=== PATIENT | male | born 1980 | race Caucasian/White ===

== ENCOUNTER 2021-03-06 13:40 | Emergency (ER) | payer MEDICAID ==
[~2021-03-06] VITALS: Ht 188 cm; Wt 105.7 kg
[2021-03-06 14:10] VITALS: BP 167/95
[2021-03-06] MEDS ORDERED: NAPR-54 PO (16:18)
--- NOTE | 2021-03-06 16:41 | NUR ---
Patient discharged with v/s stable. Written and verbal after care instructions given and explained. Patient alert, oriented and verbalized understanding of instructions. Ambulatory with steady gait. All questions addressed prior to discharge. ID band removed. Patient advised to follow up with PMD. Rx of NAPROXEN given. Opportunity to ask questions provided and answered.
== END 2021-03-06 16:41 | disposition home or self-care (01) ==
LOC: MED 13:40
DX: M76.52 Patellar tendinitis, left knee (principal)
CPT/HCPCS: 73562; 99283

== ENCOUNTER 2022-02-15 14:03 | Emergency (ER) | payer MEDICAID ==
[~2022-02-15] VITALS: Ht 188 cm; Wt 96.2 kg
[~2022-02-15 14:03] MED LIST: NAPR-54 PO
[2022-02-15 14:42] VITALS: BP 131/79
--- NOTE | 2022-02-15 14:57 | NUR ---
COVID, FLU SWABS DONE.
[2022-02-15 15:57] LABS: BASOPHILS # (AUTO) 0.1 K/uL (0.00-0.22); BASOPHILS % (AUTO) 0.8 % (0.0-2.0); EOSINOPHILS # (AUTO) 0.2 K/uL (0-0.4); HEMOGLOBIN 15.9 g/dL (12.0-18.0); LYMPHOCYTES # (AUTO) 2.3 K/uL (2.0-11.5); LYMPHOCYTES % (AUTO) 19.2 % (20.5-51.1); MEAN CORPUSCULAR HEMOGLOBIN 30 pg (27-31); MEAN CORPUSCULAR HGB CONC 34 g/dL (33-37); MEAN CORPUSCULAR VOLUME 88.4 fL (80-94); MONOCYTES # (AUTO) 0.6 K/uL (0.8-1.0); MONOCYTES % (AUTO) 4.6 % (1.7-9.3); NEUTROPHILS # (AUTO) 8.9 K/uL (1.8-7.7); NEUTROPHILS % (AUTO) 73.4 % (42.2-75.2); PLATELET COUNT (AUTO) 184 K/uL (140-450); RED BLOOD CELL COUNT(AUTO) 5.32 MIL/uL (4.20-6.10); RED CELL DISTRIBUTION WIDTH 13.8 % (11.6-13.7); WHITE BLOOD COUNT (AUTO) 12.1 K/uL (4.8-10.8)
[2022-02-15 16:25] LABS: ANION GAP 9.5 (8-16); CARBON DIOXIDE 32.1 mmol/L (21-32); CREATININE 0.9 mg/dL (0.6-1.3); POTASSIUM 4.6 mmol/L (3.5-5.1)
--- NOTE | 2022-02-15 17:40 | NUR ---
41 y/o male, pt presents to ed with 2 weeks history of chest pain, headache, generalized body weakness. pt reports he was in [place] 2 weeks ago with similar complaint, states he went to [facility], told he has UTI and was given antibiotics and some other stomach medication. denies dysuria, hematuria, fever, chills. pmh: denies nka
[2022-02-15 17:49] VITALS: BP 132/77
--- NOTE | 2022-02-15 17:49 | NUR ---
Patient discharged with v/s stable. Written and verbal after care instructions given. Patient verbalized understanding. Ambulatory with steady gait. All questions addressed prior to discharge. Advised to follow up with PMD.
--- NOTE | 2022-02-15 17:50 | NUR ---
The patient's care was reviewed and supervised by Lelia Vail, RN, RN.
== END 2022-02-15 17:49 | disposition home or self-care (01) ==
LOC: MED 14:03
DX: R07.9 Chest pain, unspecified (principal); Z20.822 Contact with and (suspected) exposure to COVID-19
CPT/HCPCS: 36415; 71045; 80048; 84484; 85025; 93005; 99285